=== PATIENT | male | born 2000 | race Caucasian/White ===

== ENCOUNTER 2019-04-09 18:00 | Emergency (ER) | payer OTHER ==
[2019-04-09 18:04] VITALS: PULSE 88
[2019-04-09] MEDS ORDERED: BUTALB/APAP/CAFF 50-325-40MG TAB PO STA (18:28)
--- NOTE | 2019-04-09 18:31 | ED ---
General Adult HPI - General Chief complaint: Headache Stated complaint: Headache Time Seen by Provider: 04/09/19 18:15 Source: patient, RN notes reviewed Mode of arrival: ambulatory Limitations: no limitations - History of Present Illness Initial comments: 18-year-old male presents to the emergency department for a chief complaint of syncope. Patient states that he just smoked some marijuana and drank a beer. States he was sitting on his couch when he started to feel nauseous and lightheaded. Patient then had a syncopal episode. Patient states this was witnessed and lasted about 30 seconds. Patient states he felt completely fine afterwards. He denies any associated chest pain or shortness of breath. Patient does also state he has had a headache for 4 days. States that he woke up with this headache on Thursday. States that when he is not taking any medication for it is about a 6 or 7. Describes it as a pain across the front of his forehead. When patient takes Motrin he states the pain completely goes away. The pain is 6.Patient has no other complaints at this time including shortness of breath, chest pain, abdominal pain, nausea or vomiting, or visual changes. - Related Data Home Medications Medication Instructions Recorded Confirmed No Known Home Medications 04/01/14 04/01/14 Allergies Allergy/AdvReac Type Severity Reaction Status Date / Time No Known Allergies Allergy Verified 04/09/19 18:04 Review of Systems ROS Statement: Those systems with pertinent positive or pertinent negative responses have been documented in the HPI. ROS Other: All systems not noted in ROS Statement are negative. Past Medical History Past Medical History: No Reported History History of Any Multi-Drug Resistant Organisms: None Reported Past Surgical History: No Surgical Hx Reported Past Psychological History: ADD/ADHD Smoking Status: Never smoker Past Alcohol Use History: Occasional Past Drug Use History: Marijuana General Exam Limitations: no limitations General appearance: alert, in no apparent distress Head exam: Present: atraumatic, normocephalic, normal inspection Eye exam: Present: normal appearance, PERRL, EOMI. Absent: scleral icterus, conjunctival injection, periorbital swelling ENT exam: Present: normal exam, mucous membranes moist, TM's normal bilaterally, normal external ear exam Neck exam: Present: normal inspection, full ROM. Absent: tenderness, meningismus, lymphadenopathy Respiratory exam: Present: normal lung sounds bilaterally. Absent: respiratory distress, wheezes, rales, rhonchi, stridor Cardiovascular Exam: Present: regular rate, normal rhythm, normal heart sounds. Absent: systolic murmur, diastolic murmur, rubs, gallop, clicks GI/Abdominal exam: Present: soft, normal bowel sounds. Absent: distended, tenderness, guarding, rebound, rigid Neurological exam: Present: alert, oriented X3 Course Vital Signs 04/09/19 18:02 Temperature 97.7 F Pulse Rate 88 Respiratory 18 Rate Blood Pressure 101/65 O2 Sat by Pulse 99 Oximetry EKG Findings - EKG Comments: EKG Findings:: Normal sinus rhythm, ventricular rate 77, MS interval 146, QTC 427 Medical Decision Making - Medical Decision Making Patient was seen and evaluated on presentation. Patient has had mild headache for 4 days. No sudden onset or thunderclap symptomology. Headache completely resolved with Motrin. Patient did also have a syncopal episode today after smoking marijuana and drinking a beer. This was preceded by lightheadedness and nausea. Patient feeling better at this time. Physical exam was unremarkable.CT brain shows a normal exam. No change. Chest x-ray shows a normal chest. EKG shows a normal sinus rhythm. Ventricular rate 77. Patient was given Fioricet and is currently not having any pain. At this time patient was discharged home to follow up with primary care. He will return here if he has any worsening symptoms. Patient's mother is coming to get him from the emergency department. Disposition Clinical Impression: Syncope Disposition: HOME SELF-CARE Condition: Good Instructions (If sedation given, give patient instructions): Syncope (ED), Acute Headache (ED) Additional Instructions: Please follow up with primary care in 1-2 days. Return to the emergency department if you have any worsening symptoms. Is patient prescribed a controlled substance at d/c from ED?: No Referrals: Radha Saha MD [Primary Care Provider] - 1-2 days Time of Disposition: 20:02
--- NOTE | 2019-04-09 19:08 | XR ---
EXAMINATION TYPE: XR chest 2V DATE OF EXAM: 04/09/2019 COMPARISON: NONE HISTORY: Headache TECHNIQUE: FINDINGS: Heart and mediastinum are normal. Lungs are clear. Diaphragm is normal. Bony thorax is inta ct. Pulmonary vascularity is normal. IMPRESSION: Normal chest.
--- NOTE | 2019-04-09 19:10 | CT ---
EXAMINATION TYPE: CT brain wo con DATE OF EXAM: 04/09/2019 COMPARISON: 04/01/2014 HISTORY: headache, syncope CT DLP: 1125.4 mGycm Automated exposure control for dose reduction was used. Ventricles and sulci appear normal. There is no mass effect nor midline shift. There is no sign of in tracranial hemorrhage. The calvarium is intact. There is no evidence of cerebral edema. IMPRESSION: Normal exam. No change. Small mucus retention cyst noted in the right maxillary sinus unchanged.
[2019-04-09 20:39] VITALS: BP 109/57; RESP 16; TEMP 98.9
== END 2019-04-09 20:43 | disposition home or self-care (01) ==
LOC: EC 18:00
DX: R55 Syncope and collapse (principal); R51 Headache; R42 Dizziness and giddiness; R11.0 Nausea
CPT/HCPCS: 70450; 71046; 93005; 99284

== ENCOUNTER 2019-04-10 14:49 | Emergency (ER) | payer OTHER ==
[2019-04-10] MEDS ORDERED: METOCLOPRAMIDE 5 MG/ML 2 ML VIAL IVP STA (15:34)
[2019-04-10] MEDS ORDERED: SODIUM CHLORIDE 0.9% 1,000 ML IV STA (15:34)
[2019-04-10] MEDS ORDERED: diphenhydrAMINE 50 MG/ML 1 ML VIAL IVP STA (15:34)
--- NOTE | 2019-04-10 15:41 | ED ---
General Adult HPI - General Chief complaint: Headache Stated complaint: Headache Time Seen by Provider: 04/10/19 15:02 Source: patient, family, RN notes reviewed, old records reviewed Mode of arrival: ambulatory Limitations: no limitations - History of Present Illness Initial comments: Patient is a pleasant 18-year-old male presenting to the emergency Department with mother with complaints of headache. Onset of headache was 5 days ago. Headache has gradually progressed since that time. Patient was in the emergency department yesterday. Patient did pass out at that time following smoking marijuana. Patient states headache is worse today. No nausea or vomiting. No visual changes. No photophobia. No weakness. Patient may have had a fever several days ago. No fever since that time. Patient also complains of cough and feels that she has some chest congestion however cough is been nonproductive. Cough just started yesterday - Related Data Previous Rx's Medication Instructions Recorded Amoxicillin 500 mg PO Q8H #30 capsule 04/10/19 Allergies Allergy/AdvReac Type Severity Reaction Status Date / Time No Known Allergies Allergy Verified 04/10/19 14:56 Review of Systems ROS Statement: Those systems with pertinent positive or pertinent negative responses have been documented in the HPI. ROS Other: All systems not noted in ROS Statement are negative. Constitutional: Reports: as per HPI Eyes: Denies: eye pain ENT: Denies: ear pain, throat pain Respiratory: Reports: cough. Denies: dyspnea Cardiovascular: Denies: chest pain Endocrine: Denies: fatigue Gastrointestinal: Denies: abdominal pain Genitourinary: Denies: dysuria Musculoskeletal: Denies: back pain Skin: Denies: rash Neurological: Reports: as per HPI, headache Past Medical History Past Medical History: No Reported History History of Any Multi-Drug Resistant Organisms: None Reported Past Surgical History: No Surgical Hx Reported Past Psychological History: ADD/ADHD Smoking Status: Never smoker Past Alcohol Use History: Occasional Past Drug Use History: Marijuana General Exam Limitations: no limitations Course Vital Signs 04/10/19 14:58 Temperature 98 F Pulse Rate 92 Respiratory 18 Rate Blood Pressure 93/59 O2 Sat by Pulse 97 Oximetry Medical Decision Making - Medical Decision Making Case was discussed in detail with Dr. ward who confirms patient can be discharged and have MRI done as an outpatient. Patient is updated specifically regarding need for this. Patient is also reevaluated and is feeling better. Patient states fevers and upper a story symptoms have been actually occurring for 4-5 days and therefore Tamiflu will not be provided secondary to onset greater than 2 days. Patient also updated influenza. - Lab Data Lab Results 04/10/19 Range/Units 15:40 Influenza Type A RNA Not Detected (Not Detectd) Influenza Type B (PCR) Detected H (Not Detectd) - Radiology Data Radiology results: report reviewed (CT angiogram of the brain shows questionable 2 mm aneurysm anterior anything artery versus motion artifact.), image reviewed (Chest x-ray shows no acute process) Disposition Clinical Impression: Influenza, Sinusitis, Cephalgia Disposition: HOME SELF-CARE Condition: Stable Instructions (If sedation given, give patient instructions): Acute Headache (ED), Influenza (ED), Sinusitis (ED) Additional Instructions: Please follow-up with primary care physician in the next couple days for recheck. Have primary care physician review results from today, specifically CT results and schedule MRI/MRA of the brain. Return for headache, passing out, weakness or confusion, worsening symptoms or other concerns. Prescriptions sent to [facility] pharmacy for antibiotic's for sinus disease Prescriptions: Amoxicillin 500 mg PO Q8H #30 capsule Is patient prescribed a controlled substance at d/c from ED?: No Referrals: Radha Saha MD [Primary Care Provider] - 1-2 days Time of Disposition: 17:11
[2019-04-10] MEDS ORDERED: ACETAMINOPHEN TAB 500 MG TAB PO STA (16:17)
--- NOTE | 2019-04-10 16:28 | XR ---
EXAMINATION TYPE: XR chest 2V DATE OF EXAM: 04/10/2019 COMPARISON: 04/09/2019 TECHNIQUE: PA and lateral views submitted. HISTORY: Cough FINDINGS: The lungs are clear and there is no pneumothorax, pleural effusion, or focal pneumonia. Heart size normal no evidence of overt failure. IMPRESSION: 1. No acute process.
[2019-04-10] MEDS ORDERED: SODIUM CHLORIDE 0.9% 500 ML 500 ML IV STA (16:32)
--- NOTE | 2019-04-10 16:41 | CT ---
EXAMINATION TYPE: CT angio head DATE OF EXAM: 04/10/2019 4:30 PM COMPARISON: CT brain 04/09/2019 HISTORY: headache CT DLP: 2200 mGycm Automated exposure control for dose reduction was used. TECHNIQUE: Performed with IV Contrast, patient injected with 100 mL of Isovue 370. . FINDINGS: Exam limited by motion artifact. Changes of chronic sinusitis noted. Calvarium intact as visualized. Visualized portion of the vascula ture is patent. A question a tiny 2 mm nodular prominence near the anterior communicating artery. IMPRESSION: 1. There is a 2 mm nodular prominence in the region of the anterior communicating artery seen only on coronal images. Motion artifact limits assessment and this may represent partial volume averaging. R ecommend follow-up MRI\MRA to exclude small aneurysm. 2. Severe sinusitis
[2019-04-10 17:22] VITALS: BP 100/52; PULSE 74; RESP 17; TEMP 98.4
== END 2019-04-10 17:14 | disposition home or self-care (01) ==
LOC: EC 14:49
DX: J32.9 Chronic sinusitis, unspecified (principal); J10.1 Influenza due to other identified influenza virus with other respiratory manifestations
CPT/HCPCS: 99285; 96374; 96375; 87502; 71046; 70496; J1200; J2765; Q9967